=== PATIENT | female | born 1990 | race Caucasian/White ===

== ENCOUNTER 2017-08-11 13:54 | Inpatient (IN) | payer MEDICARE, MEDICAID ==
[~2017-08-11] VITALS: Ht 157.5 cm; Wt 95.9 kg
[2017-08-11] VITALS (7 sets, daily range): BP systolic 108–127; BP diastolic 60–83; PULSE 90–120; RESP 16–18; TEMP 98–98.6; O2SAT 94–98
[2017-08-11] MEDS ORDERED: QUET1TAB10 PO ×2 (14:37)
[2017-08-11] MEDS ORDERED: TOPI50TA7 PO (14:37)
[2017-08-11] MEDS ORDERED: LEVO100T5 PO (14:37)
[2017-08-11] MEDS ORDERED: METO25TA3 PO (14:37)
[2017-08-11] MEDS ORDERED: SODIUM CHLOR 0.9% 1000 ML INJ 1,000 ML IV SCH (15:19)
[2017-08-11] MEDS ORDERED: SODIUM CHLORIDE 0.9% FLUSH 10 ML FLUSH IV FLUSH PRN ×2 (15:30→17:30)
[2017-08-11] MEDS ORDERED: MORPHINE SULFATE 4 MG/ML INJ IV PUSH ONE ×2 (15:30→17:00)
[2017-08-11] MEDS ORDERED: ONDANSETRON HCL 4 MG/2 ML VIAL IVP ONE (15:30)
[2017-08-11 15:51] LABS: AUTOMATED NEUTROPHIL # 14.4 TH/MM3 (1.8-7.7); BASOPHIL # 0.2 TH/MM3 (0-0.2); BASOPHIL % 1.2 % (0.0-2.0); EOSINOPHIL % 0.2 % (0.0-4.0); HEMATOCRIT 41.6 % (35.0-46.0); LYMPH % 7.9 % (9.0-44.0); LYMPHOCYTE # 1.3 TH/MM3 (1.0-4.8); MEAN CELL VOLUME 86.5 FL (80.0-100.0); MEAN CORPUSCULAR HEMOGLOBIN 29.1 PG (27.0-34.0); MEAN CORPUSCULAR HGB CONC 33.7 % (32.0-36.0); MONO % 4.2 % (0.0-8.0); NEUT % 86.5 % (16.0-70.0); PLATELET COUNT 229 TH/MM3 (150-450); RED BLOOD COUNT 4.81 MIL/MM3 (4.00-5.30); RED CELL DISTRIBUTION WIDTH 12.1 % (11.6-17.2); WHITE BLOOD COUNT 16.6 TH/MM3 (4.0-11.0)
[2017-08-11 15:57] LABS: BLOOD, URINE NEG (NEG); GLUCOSE,URINE NEG (NEG); KETONE, URINE NEG (NEG); NITRITE,URINE NEG (NEG)
[2017-08-11 16:00] LABS: POTASSIUM 3.9 MEQ/L (3.5-5.1)
[2017-08-11 16:03] LABS: BICARBONATE 20.8 MEQ/L (21.0-32.0)
[2017-08-11 16:07] LABS: HEMO FLAGS DIFF FINAL
[2017-08-11 16:12] LABS: MUCUS URINE FEW /lpf (OCC); URINE COLOR YELLOW (YELLW/STRAW)
[2017-08-11 16:13] LABS: BACTERIA, URINE FEW /hpf; COMMENT (UR) CULT NOT INDICATED; CULTURE IF INDICATED CULT NOT INDICATED
[2017-08-11 16:17] LABS: INTERNATIONAL NORMALIZED RATIO 1.1 RATIO; PROTHROMBIN TIME - PATIENT 10.7 SEC (9.8-11.6)
[2017-08-11] MEDS ORDERED: IOHEXOL 350 MG/ML 10 ML VIAL (for RAD DIAG) IVCONTRAST ONE (16:17)
--- NOTE | 2017-08-11 16:36 | RADRPT ---
EXAM DATE/TIME: 08/11/2017 16:06 [facility] COMPARISON: No previous studies available for comparison. INDICATIONS : Lower abdominal pain, nausea and vomiting. IV CONTRAST: 70 cc Omnipaque 350 (iohexol) IV ORAL CONTRAST: No oral contrast ingested. RADIATION DOSE: 17.90 CTDIvol (mGy) MEDICAL HISTORY : Mentally challenged. SURGICAL HISTORY : None. ENCOUNTER: Initial ACUITY: 1 day PAIN SCALE: 8/10 LOCATION: Bilateral lower quadrant TECHNIQUE: Volumetric scanning of the abdomen and pelvis was performed. Using automated exposure control and ad justment of the mA and/or kV according to patient size, radiation dose was kept as low as reasonably achievable to obtain optimal diagnostic quality images. DICOM format image data is available electro nically for review and comparison. FINDINGS: LOWER LUNGS: The visualized lower lungs are clear. LIVER: Homogeneous density without lesion. There is no dilation of the biliary tree. No calcified gallston es. SPLEEN: Normal size without lesion. PANCREAS: Within normal limits. KIDNEYS: Normal in size and shape. There is no mass, stone or hydronephrosis. ADRENAL GLANDS: Within normal limits. VASCULAR: There is no aortic aneurysm. BOWEL/MESENTERY: The stomach, small bowel, and colon demonstrate no acute abnormality. There is no free intraperitone al air or fluid. There is a long appendix that is filled proximally with fecal material measures up t o 11 mm in diameter. There is air in the lumen at the tip in the distal aspect may demonstrate mild i nduration/inflammation of the periappendiceal fat. ABDOMINAL WALL: Within normal limits. RETROPERITONEUM: There is no lymphadenopathy. BLADDER: No wall thickening or mass. REPRODUCTIVE: Within normal limits. INGUINAL: There is no lymphadenopathy or hernia. MUSCULOSKELETAL: No acute abnormality is identified. CONCLUSION: 1. The appendix is questionably abnormal. It measures larger in diameter than typical and there is qu estionable mild inflammation around the tip of the appendix. This questionably represents a very vince y acute appendicitis. Suggest correlating with the clinical examination. If conclusive consider a fol lowup CT scan of the abdomen and pelvis. 2. Remainder of the examination is within normal limits. Sulaiman Sanchez MD on August 11, 2017 at 16:26 Board Certified Radiologist. This report was verified electronically.
[2017-08-11] MEDS ORDERED: PIPERACIL-TAZO 3.375 GM PREMIX 50 ML IV ONE (17:00)
--- NOTE | 2017-08-11 17:10 | PD ---
HPI Chief Complaint: GI Complaint Time Seen by Provider: 15:14 Travel History International Travel<30 days: No Contact w/Intl Traveler<30days: No Traveled to known affect area: No History of Present Illness HPI Patient is a 27-year-old female, with history of seizures, tachycardia, hypothyroidism, who comes in complaining of abdominal pain with nausea and vomiting. She says the pain started last night before she went to bed. She says she had an episode of vomiting this morning. She says the pain is all over her abdomen, but worse in the right lower quadrant. She had a bowel movement this morning that was hard. She denies fever or chills. She has not eaten today. She denies any urinary symptoms. She does complain of some pain to her back. [facility] Past Medical History Heart Rhythm Problems: Yes (TACHYCARDIA) Diminished Hearing: Yes Psychiatric: Yes (MENTALLY CHALLENGED) Influenza Vaccination: No ?: Not Past Surgical History Ear Surgery: Yes (TUBES) Tonsillectomy: Yes Social History Alcohol Use: No Tobacco Use: No Substance Use: No Allergies-Medications (Allergen,Severity, Reaction): Coded Allergies: methylphenidate (Verified Allergy, Mild, Hives, 08/11/17) Reported Meds & Prescriptions Reported Meds & Active Scripts Active Reported Levothyroxine (Levothyroxine Sodium) 100 Mcg Tab 100 Mcg PO DAILY Quetiapine (Quetiapine Fumarate) 300 Mg Tab 300 Mg PO HS Quetiapine (Quetiapine Fumarate) 300 Mg Tab 150 Mg PO DAILY Topiramate 50 Mg Tab 150 Mg PO HS Metoprolol Tartrate 25 Mg Tab 25 Mg PO BID Review of Systems Except as stated in HPI: all other systems reviewed are Neg General / Constitutional: No: Fever, Chills HENT: No: Headaches, Lightheadedness Cardiovascular: No: Chest Pain or Discomfort Respiratory: No: Shortness of Breath Gastrointestinal: Positive: Nausea, Vomiting, Abdominal Pain, Constipation Genitourinary: No: Dysuria Musculoskeletal: No: Myalgias, Edema Skin: No Rash, No Change in Pigmentation Neurologic: No: Weakness, Dizziness Physical Exam Narrative GENERAL: Awake and alert, in no acute distress. SKIN: Focused skin assessment warm/dry. HEAD: Atraumatic. Normocephalic. EYES: Pupils equal and round. No scleral icterus. ENT: Mucous membranes pink and moist. NECK: Trachea midline. No JVD. CARDIOVASCULAR: Regular rate and rhythm. No murmur appreciated. RESPIRATORY: No accessory muscle use. Clear to auscultation. Breath sounds equal bilaterally. GASTROINTESTINAL: Abdomen soft, nondistended. Tender to palpation of the right lower quadrant. Positive rebound tenderness. No CVA tenderness. MUSCULOSKELETAL: No obvious deformities. No clubbing. No cyanosis. No edema. NEUROLOGICAL: Awake and alert. No obvious cranial nerve deficits. Motor grossly within normal limits. Normal speech. PSYCHIATRIC: Appropriate mood and affect; insight and judgment normal. Data Data Last Documented VS Vital Signs Date Time Temp Pulse Resp B/P (MAP) Pulse Ox O2 Delivery O2 Flow Rate FiO2 08/11/17 16:48 106 18 117/77 (90) 97 Room Air 08/11/17 14:01 98.0 Orders Orders Basic Metabolic Panel (Bmp) (08/11/17 15:19) Complete Blood Count With Diff (08/11/17 15:19) Lipase (08/11/17 15:19) Prothrombin Time / Inr (Pt) (08/11/17 15:19) Act Partial Throm Time (Ptt) (08/11/17 15:19) Urinalysis - C+S If Indicated (08/11/17 15:19) Ct Abd/Pel W Iv Contrast(Rout) (08/11/17 15:19) Iv Access Insert/Monitor (08/11/17 15:19) Ecg Monitoring (08/11/17 15:19) Oximetry (08/11/17 15:19) Morphine Inj (Morphine Inj) (08/11/17 15:30) Ondansetron Inj (Zofran Inj) (08/11/17 15:30) Sodium Chlor 0.9% 1000 Ml Inj (Ns 1000 M (08/11/17 15:19) Sodium Chloride 0.9% Flush (Ns Flush) (08/11/17 15:30) Ed Urine Pregnancytest Poc (08/11/17 15:19) Iohexol 350 Inj (Omnipaque 350 Inj) (08/11/17 16:17) Morphine Inj (Morphine Inj) (08/11/17 17:00) Piperacil-Tazo 3.375 Gm Premix (Zosyn 3. (08/11/17 17:00) Labs Laboratory Tests Test 08/11/17 15:30 08/11/17 15:45 Urine Color YELLOW Urine Turbidity CLEAR Urine pH 6.0 Urine Specific [place] 1.018 Urine Protein NEG mg/dL Urine Glucose (UA) NEG mg/dL Urine Ketones NEG mg/dL Urine Occult Blood NEG Urine Nitrite NEG Urine Bilirubin NEG Urine Leukocyte Esterase SMALL Urine WBC 6-8 /hpf Urine Squamous Epithelial Cells 6-8 /hpf Urine Bacteria FEW /hpf Urine Mucus FEW /lpf Microscopic Urinalysis Comment CULT NOT INDICATED White Blood Count 16.6 TH/MM3 Red Blood Count 4.81 MIL/MM3 Hemoglobin 14.0 GM/DL Hematocrit 41.6 % Mean Corpuscular Volume 86.5 FL Mean Corpuscular Hemoglobin 29.1 PG Mean Corpuscular Hemoglobin Concent 33.7 % Red Cell Distribution Width 12.1 % Platelet Count 229 TH/MM3 Mean Platelet Volume 8.2 FL Neutrophils (%) (Auto) 86.5 % Lymphocytes (%) (Auto) 7.9 % Monocytes (%) (Auto) 4.2 % Eosinophils (%) (Auto) 0.2 % Basophils (%) (Auto) 1.2 % Neutrophils # (Auto) 14.4 TH/MM3 Lymphocytes # (Auto) 1.3 TH/MM3 Monocytes # (Auto) 0.7 TH/MM3 Eosinophils # (Auto) 0.0 TH/MM3 Basophils # (Auto) 0.2 TH/MM3 CBC Comment DIFF FINAL Differential Comment Prothrombin Time 10.7 SEC Prothromb Time International Ratio 1.1 RATIO Activated Partial Thromboplast Time 24.0 SEC Blood Urea Nitrogen 15 MG/DL Creatinine 1.00 MG/DL Random Glucose 102 MG/DL Calcium Level 8.8 MG/DL Sodium Level 140 MEQ/L Potassium Level 3.9 MEQ/L Chloride Level 110 MEQ/L Carbon Dioxide Level 20.8 MEQ/L Anion Gap 9 MEQ/L Estimat Glomerular Filtration Rate 66 ML/MIN Lipase 145 U/L [facility] Medical Decision Making Medical Screen Exam Complete: Yes Emergency Medical Condition: Yes Medical Record Reviewed: Yes Differential Diagnosis UTI versus appendicitis versus cholecystitis versus colitis versus constipation Narrative Course Patient is a 27-year-old female who comes in complaining of abdominal pain with nausea and vomiting. Exam shows right lower quadrant tenderness with rebound. IV established, labs sent. Labs show a white blood cell count of 16.6. CT abdomen and pelvis is concerning for early appendicitis. Is given IV fluids, Zofran, morphine. Given a dose of Zosyn. Last 24 hours Impressions Abdomen/Pelvis CT 08/11/17 1519 Signed Impressions: Service Date/Time: Friday, August 11, 2017 16:06 - CONCLUSION: 1. The appendix is questionably abnormal. It measures larger in diameter than typical and there is questionable mild inflammation around the tip of the appendix. This questionably represents a very early acute appendicitis. Suggest correlating with the clinical examination. If conclusive consider a followup CT scan of the abdomen and pelvis. 2. Remainder of the examination is within normal limits. Sulaiman Sanchez MD Spoke with Dr. Beebe who will take the patient to the OR. He would like patient admitted to medicine due to her multiple medical issues. Patient admitted to the hospitalist service. Diagnosis Primary Impression: Appendicitis Qualified Codes: K35.89 - Other acute appendicitis Admitting Information Admitting Physician Requests: Admit Sanaz Toro MD Aug 11, 2017 17:10
[2017-08-11] MEDS ORDERED: MAGNESIUM HYDROXIDE SUSP 30 ML CUP PO PRN (17:30)
[2017-08-11] MEDS ORDERED: ONDANSETRON HCL 4 MG/2 ML VIAL IVP PRN (17:30)
[2017-08-11] MEDS ORDERED: CALCIUM CARBONATE 500 MG CHEWABLE TAB CHEW PRN (17:30)
[2017-08-11] MEDS ORDERED: TEMAZEPAM 15 MG CAP PO PRN (17:30)
[2017-08-11] MEDS ORDERED: DOCUSATE SODIUM 100 MG CAP PO PRN (17:30)
[2017-08-11] MEDS ORDERED: NALOXONE HCL 0.4 MG/ML AMP IV PUSH PRN (17:30)
[2017-08-11] MEDS ORDERED: ACETAMINOPHEN 325 MG TAB PO PRN (17:30)
[2017-08-11] MEDS ORDERED: PILL SPLITTER OTHER PRN (17:45)
[2017-08-11] MEDS: SODIUM CHLOR 0.9% 1000 ML INJ 1,000 ML IV SCH (17:47)
--- NOTE | 2017-08-11 17:58 | RADRPT ---
EXAM DATE/TIME: 08/11/2017 17:43 [facility] COMPARISON: CT ABDOMEN & PELVIS W CONTRAST, August 11, 2017, 16:06. INDICATIONS : Sepsis. MEDICAL HISTORY : Mentally challenged SURGICAL HISTORY : None. ENCOUNTER: Initial ACUITY: 1 day PAIN SCORE: 8/10 LOCATION: Bilateral chest FINDINGS: Portable AP view of the chest demonstrates a normal-sized cardiac silhouette. Lungs are underinflated with likely atelectasis at the lung bases. Today's chest CT demonstrated no abnormality at the visua lized lung bases. No pleural effusion or pneumothorax is identified. Bones and soft tissues demonstra te no acute finding. CONCLUSION: Underinflation with atelectasis at the lung bases. Otherwise, no acute finding is identified. Sulaiman Sanchez MD on August 11, 2017 at 17:55 Board Certified Radiologist. This report was verified electronically.
[2017-08-11] MEDS ORDERED: BUPIVACAINE/EPINEPHRINE 0.25% PF 30 ML VIAL ONE (17:59)
--- NOTE | 2017-08-11 18:04 | HHI.HP ---
[facility] Service [facility] Hospitalists Primary Care Physician Eduardo Prakash MD Admission Diagnosis Appendicitis Diagnoses: Chief Complaint: abd pain Travel History International Travel<30 Days: No Contact w/Intl Traveler <30 Da: No Traveled to Known Affected Are: No Sepsis Criteria SIRS Criteria (2 or more): Heart rate over 90, WBC > 93308, < 4000 or > 10% bands Sepsis Criteria (SIRS+source): Infect source susp/known History of Present Illness 27-year-old white female being admitted for appendicitis. History is limited as the mother is the main historian since the patient has a limited intellectual and psychosocial capacity although she is conversive to some degree. Patient was in her usual state of health until yesterday evening when she complained to her mother about back pain. However later in the night around 3 AM she began having abdominal pain which then progress to nausea and vomiting. The pain per the mother started in the bilateral upper abdomen and the progress down towards the suprapubic region. The mother states that the patient did complain to her about some burning upon urination. Mother denies sensing any tactile fever. No reports of any diaphoresis. They tried to go to the primary care office however it was too late because it was close today. Review of Systems attempted but limited by pt not being able to provide further hx. see HPI. Past Family Social History Past Medical History Pervasive developmental disorder Thyroid problems Tachycardia Mood disorders Chronically impaired vision Past Surgical History Tonsils and adenoids removed PE tubes Allergies: Coded Allergies: methylphenidate (Verified Allergy, Mild, Hives, 08/11/17) Family History mother w/ appendicitis and cholelethiasis Social History Lives with mother, graduated from a special school, mental level of functioning is much younger than chronological age. Mother is power of district attorney and decision maker Physical Exam Vital Signs Vital Signs Date Time Temp Pulse Resp B/P (MAP) Pulse Ox O2 Delivery O2 Flow Rate FiO2 08/11/17 17:50 120 18 110/73 (85) 94 Room Air 08/11/17 17:31 16 08/11/17 16:48 106 18 117/77 (90) 97 Room Air 08/11/17 16:47 16 08/11/17 16:01 18 98 Room Air 08/11/17 15:17 90 18 127/83 (98) 98 Room Air 08/11/17 14:01 98.0 92 16 123/60 (81) 96 Physical Exam VS: Afebrile, tachycardic GENERAL: White female who appears mildly somnolent, lying in bed, well-nourished SKIN: Warm and dry. EYES: No scleral icterus. No injection or drainage. Has a slightly lacking eyelid on the right, normal in the left ENT: No nasal bleeding or discharge. Mucous membranes pink and moist. CARDIOVASCULAR: Regular rate and rhythm. no murmurs RESPIRATORY: No accessory muscle use. Clear to auscultation. Breath sounds equal bilaterally. GASTROINTESTINAL: Abdomen soft, has diffuse TTP over suprapubic area with no guarding, I'm unable to discern any true rebound as the patient's abdomen is soft and nondistended nor taut Extremities: No clubbing, cyanosis, or edema. No obvious deformities. MUSCULOSKELETAL: adequate muscle bulk and tone in all 4 distal extremities NEUROLOGICAL: Awake and alert. No obvious cranial nerve deficits. No facial droop nor slurred speech noted. PSYCHIATRIC: Appropriate mood and affect Laboratory Laboratory Tests Test 08/11/17 15:30 08/11/17 15:45 Urine Color YELLOW Urine Turbidity CLEAR Urine pH 6.0 Urine Specific [place] 1.018 Urine Protein NEG Urine Glucose (UA) NEG Urine Ketones NEG Urine Occult Blood NEG Urine Nitrite NEG Urine Bilirubin NEG Urine Leukocyte Esterase SMALL Urine WBC 6-8 Urine Squamous Epithelial Cells 6-8 Urine Bacteria FEW Urine Mucus FEW Microscopic Urinalysis Comment CULT NOT INDICATED White Blood Count 16.6 Red Blood Count 4.81 Hemoglobin 14.0 Hematocrit 41.6 Mean Corpuscular Volume 86.5 Mean Corpuscular Hemoglobin 29.1 Mean Corpuscular Hemoglobin Concent 33.7 Red Cell Distribution Width 12.1 Platelet Count 229 Mean Platelet Volume 8.2 Neutrophils (%) (Auto) 86.5 Lymphocytes (%) (Auto) 7.9 Monocytes (%) (Auto) 4.2 Eosinophils (%) (Auto) 0.2 Basophils (%) (Auto) 1.2 Neutrophils # (Auto) 14.4 Lymphocytes # (Auto) 1.3 Monocytes # (Auto) 0.7 Eosinophils # (Auto) 0.0 Basophils # (Auto) 0.2 CBC Comment DIFF FINAL Differential Comment Prothrombin Time 10.7 Prothromb Time International Ratio 1.1 Activated Partial Thromboplast Time 24.0 Blood Urea Nitrogen 15 Creatinine 1.00 Random Glucose 102 Calcium Level 8.8 Sodium Level 140 Potassium Level 3.9 Chloride Level 110 Carbon Dioxide Level 20.8 Anion Gap 9 Estimat Glomerular Filtration Rate 66 Lipase 145 Result Diagram: 08/11/17 1545 08/11/17 1545 Imaging Last Impressions Chest X-Ray 08/11/17 1722 Signed Impressions: Service Date/Time: Friday, August 11, 2017 17:43 - CONCLUSION: Underinflation with atelectasis at the lung bases. Otherwise, no acute finding is identified. Sulaiman Sanchez MD Abdomen/Pelvis CT 08/11/17 1519 Signed Impressions: Service Date/Time: Friday, August 11, 2017 16:06 - CONCLUSION: 1. The appendix is questionably abnormal. It measures larger in diameter than typical and there is questionable mild inflammation around the tip of the appendix. This questionably represents a very early acute appendicitis. Suggest correlating with the clinical examination. If conclusive consider a followup CT scan of the abdomen and pelvis. 2. Remainder of the examination is within normal limits. MD Angeles Elizabeth VTE Risk Assessment Angeles VTE Risk Assessment: Mod/High Risk (score >= 2) Caprini Risk Assessment Model Point Value = 1 Point Value = 2 Point Value = 3 Point Value = 5 Age 41-60 Minor surgery BMI > 25 kg/m2 Swollen legs Varicose veins or History of unexplained or recurrent spontaneous Oral contraceptives or hormone replacement Sepsis (< 1 month) Serious lung disease, including pneumonia (< 1 month) Abnormal pulmonary function Acute myocardial infarction Congestive heart failure (< 1 month) History of inflammatory bowel disease Medical patient at bed rest Age 61-74 Arthroscopic surgery Major open surgery (> 45 min) Laparoscopic surgery (> 45 min) Malignancy Confined to bed (> 72 hours) Immobilizing plaster cast Central venous access Age >= 75 History of VTE Family history of VTE Factor V Leiden Prothrombin [id number] Lupus anticoagulant Anticardiolipin antibodies Elevated serum homocysteine Heparin-induced thrombocytopenia Other congenital or acquired thrombophilia Stroke (< 1 month) Elective arthroplasty Hip, pelvis, or leg fracture Acute spinal cord injury (< 1 month) Prophylaxis Regimen Total Risk Factor Score Risk Level Prophylaxis Regimen 0-1 Low Early ambulation 2 Moderate Order ONE of the following: *Sequential Compression Device (SCD) *Heparin 5000 units SQ BID 3-4 Higher Order ONE of the following medications: *Heparin 5000 units SQ TID *Enoxaparin/Lovenox 40 mg SQ daily (WT < 150 kg, CrCl > 30 mL/min) *Enoxaparin/Lovenox 30 mg SQ daily (WT < 150 kg, CrCl > 10-29 mL/min) *Enoxaparin/Lovenox 30 mg SQ BID (WT < 150 kg, CrCl > 30 mL/min) AND/OR *Sequential Compression Device (SCD) 5 or more Highest Order ONE of the following medications: *Heparin 5000 units SQ TID (Preferred with Epidurals) *Enoxaparin/Lovenox 40 mg SQ daily (WT < 150 kg, CrCl > 30 mL/min) *Enoxaparin/Lovenox 30 mg SQ daily (WT < 150 kg, CrCl > 10-29 mL/min) *Enoxaparin/Lovenox 30 mg SQ BID (WT < 150 kg, CrCl > 30 mL/min) AND *Sequential Compression Device (SCD) Assessment and Plan Assessment and Plan Sepsis - Most likely secondary to appendicitis - Patient had already been given a dose of Zosyn by emergency room staff, will obtain blood cultures nonetheless along with urine culture and chest x-ray - Continue Zosyn - IV fluid bolus followed by infusion - Elevated white count with tachycardia Appendicitis - Independent review the CT scan shows substantial stool retention and the patient - General surgery has been consulted and anticipate taking patient to operating room tonight - May be worth starting MiraLAX postop once patient is tolerating by mouth intake Continue home metoprolol, Synthroid, and Topamax + Seroquel (for mood disorders) . SCDs - transition to lovenox postop Physician Certification 2 Midnight Certification Type: Admission for Inpatient Services Order for Inpatient Services The services are ordered in accordance with Medicare regulations or non- Medicare payer requirements, as applicable. In the case of services not specified as inpatient-only, they are appropriately provided as inpatient services in accordance with the 2-midnight benchmark. Estimated LOS (days): 2 2 days is the estimated time the patient will need to remain in the hospital, assuming treatment plan goals are met and no additional complications. Post-Hospital Plan: Home Natanael Freeman MD Aug 11, 2017 18:04
[2017-08-11] MEDS ORDERED: SODIUM CHLOR 0.9% 1000 ML INJ 1,000 ML IV ONE (18:15)
[2017-08-11] MEDS ORDERED: CHLORHEXIDINE GLUCONATE 2 % 1 PACK (2 CLOTHS) TOPICAL PRN (19:00)
[2017-08-11] MEDS ORDERED: POVIDONE IODINE 5% (ANTISEPSIS KIT) 4 APPLICATIONS EACH NARE PRN (19:00)
[2017-08-11] MEDS ORDERED: SODIUM CHLORID 0.9% 500 ML IV PRN (19:00)
[2017-08-11] MEDS ORDERED: LACTATED RINGER'S 1000 ML IV PRN (19:00)
[2017-08-11] MEDS ORDERED: FAMOTIDINE 20 MG/2 ML VIAL ONE (19:04)
[2017-08-11] MEDS ORDERED: MIDAZOLAM HCL 2 MG/2 ML VIAL ONE (19:04)
[2017-08-11 19:07] LABS: INDIRECT BILIRUBIN 0.7 MG/DL (0.0-0.8); TOTAL BILIRUBIN ADULT 0.8 MG/DL (0.2-1.0)
[2017-08-11] MEDS ORDERED: ACETAMINOPHEN 1000 MG/100 ML 100 ML IV ONE (19:46)
--- NOTE | 2017-08-11 20:20 | HHI.PR ---
cc: Brayan Beebe MD Immediate Post Op Note Procedure Date: Aug 11, 2017 Pre Op Diagnosis: Acute appendicitis Post Op Diagnosis: Same, without perforation Surgeon: Brayan Beebe Aeronautical Engineering Professor(s): Ann Springer CST Procedure: Laparoscopic appendectomy Complications: None Specimen(s) removed: Appendix to pathology Estimated blood loss: 20 ml Anesthesia: General Drains: None IVF (800 ml) Patient to: PACU Patient Condition: Good Date/Time of Procedure: SEE SURGICAL CARE RECORD Brayan Beebe MD Aug 11, 2017 20:20
[2017-08-11] MEDS ORDERED: ACETAMINOPHEN/HYDROcodone 325 MG/7.5 MG TAB PO PRN ×2 (20:30)
[2017-08-11] MEDS ORDERED: NORC5TAB PO (20:30)
[2017-08-11] MEDS ORDERED: IBUP200T47 PO (20:48)
[2017-08-11] MEDS ORDERED: IBUP-1129 (20:48)
[2017-08-11] MEDS ORDERED: TUMS500C CHEW (20:48)
[2017-08-11] MEDS ORDERED: QUEtiapine FUMARATE 300 MG TAB PO SCH (21:00)
[2017-08-11] MEDS: SODIUM CHLORIDE 0.9% FLUSH 10 ML FLUSH IV FLUSH SCH (21:00)
[2017-08-11] MEDS ORDERED: TOPIRAMATE 100 MG TAB PO SCH (21:00)
[2017-08-11] MEDS ORDERED: TOPIRAMATE 25 MG TAB PO SCH (21:00)
[2017-08-11] MEDS: METOPROLOL TARTRATE 25 MG TAB PO SCH (22:28)
[2017-08-11] MEDS: PIPERACIL-TAZO 3.375 GM PREMIX 50 ML IV SCH (22:28)
[2017-08-12] VITALS: BP 89/55; PULSE 88; RESP 16; TEMP 97.7; O2SAT 94
[2017-08-12] MEDS: SODIUM CHLOR 0.9% 1000 ML INJ 1,000 ML IV SCH (03:22)
[2017-08-12] MEDS: PIPERACIL-TAZO 3.375 GM PREMIX 50 ML IV SCH ×3 (05:12→16:38)
[2017-08-12] MEDS ORDERED: LEVOTHYROXINE SODIUM 100 MCG TAB PO SCH (06:00)
--- NOTE | 2017-08-12 06:50 | MB ---
cc: GEORGETTE SEBASTIAN M.D. DATE OF CONSULTATION: 08/11/2017 REASON FOR CONSULTATION: Possible appendicitis. HISTORY OF PRESENT ILLNESS The patient is a 27-year-old female with history of seizures, tachycardia, hypothyroidism who came in with a 1-day history of abdominal pain with nausea and vomiting. The patient stated that the pain was all over her abdomen but is worse in the right lower quadrant. She denies fever or chills. She is anorexic, but denies urinary symptoms. She had last menstrual period was the week before . PAST MEDICAL HISTORY: On the patient's past medical history significant for tachycardia due to heart rhythm problems since childhood. She has diminished hearing and wears hearing aids. She has decreased mental capacity. She has had PE tubes placed and tonsillectomy as a child. SOCIAL HISTORY: She does not drink, smoke or use other medications. ALLERGIES She has an allergy of METHYLPHENIDATE which causes hives. MEDICATIONS 1. Medications include levothyroxine 100 mcg p.o. daily 2. Quetiapine fumarate 300 mg. po q.h.s. and 150 mg p.o. q. day 3. Topiramate 150 mg p.o. q.h.s. 4. Metoprolol 25 mg p.o. b.i.d. REVIEW OF SYSTEMS Her review of systems is negative except as indicated above. GI is positive for nausea, vomiting, abdominal pain and constipation this morning. PHYSICAL EXAMINATION: IN GENERAL: Physical exam reveals an obese female in no acute distress. VITAL SIGNS: Blood pressure 110/73, pulse 120, respirations 18, 94% sat on room air. HEAD, EYES, EARS, NOSE, AND THROAT: Sclerae anicteric. CHEST: Clear to auscultation. CARDIOVASCULAR SYSTEM: Cardiac exam reveals tachycardia without murmurs. ABDOMEN: Abdomen is soft with tenderness located in the suprapubic region, right lower quadrant and periumbilical region as well as right midabdomen. There is some guarding associated with this. Pulses are present. NEUROLOGIC: Neurologic exam is grossly nonfocal. The patient's fingers were cold. She does have Raynaud's phenomenon as well. ASSESSMENT 1. Multiple medical problems including; 2. Congenital hearing decrease 3. History of tachycardia. 4. Seizure disorder. 5. Hypothyroidism 6. Probable acute appendicitis. LABORATORY: Laboratory values demonstrate WBCs of 16.6. IMAGING: Imaging demonstrates dilated tubular structure in the area of the appendix with stool and air at upper limits of normal size. PLAN I have discussed with the patient's mother surgery versus observation and antibiotics. Given her tachycardia and pain and white count, I would favor not continuing observation. The patient's mother works and she would prefer to have definitive answer for this and is agreeable to surgery this evening. I have discussed risks of surgery with patient's mother, including but not limited to bleeding, infection, abscess formation, need for reoperation, and adhesion formation as well as intestinal leakage. I have discussed remedies, consequences, alternatives, and convalescence; she vocalizes understanding and agrees to proceed. She is the guardian for her daughter. MD SHANTE Griffin/sukhdev /8:32 PM /6:23 AM SAVANNAH
[2017-08-12 07:23] LABS: AUTOMATED NEUTROPHIL # 9.7 TH/MM3 (1.8-7.7); BASOPHIL % 0.4 % (0.0-2.0); EOSINOPHIL # 0.2 TH/MM3 (0-0.4); EOSINOPHIL % 1.4 % (0.0-4.0); HEMATOCRIT 36.4 % (35.0-46.0); HEMO FLAGS DIFF FINAL; LYMPH % 12.4 % (9.0-44.0); LYMPHOCYTE # 1.5 TH/MM3 (1.0-4.8); MEAN CELL VOLUME 86.8 FL (80.0-100.0); MEAN CORPUSCULAR HEMOGLOBIN 28.7 PG (27.0-34.0); MEAN CORPUSCULAR HGB CONC 33.1 % (32.0-36.0); MONO % 8.1 % (0.0-8.0); NEUT % 77.7 % (16.0-70.0); PLATELET COUNT 202 TH/MM3 (150-450); RED CELL DISTRIBUTION WIDTH 12.6 % (11.6-17.2); WHITE BLOOD COUNT 12.4 TH/MM3 (4.0-11.0)
[2017-08-12 07:44] LABS: POTASSIUM 3.3 MEQ/L (3.5-5.1)
[2017-08-12 07:55] LABS: BICARBONATE 20.4 MEQ/L (21.0-32.0)
[2017-08-12 08:00] VITALS: BP 103/59; PULSE 84; RESP 16; TEMP 98; O2SAT 96
[2017-08-12] MEDS: METOPROLOL TARTRATE 25 MG TAB PO SCH (08:31)
[2017-08-12] MEDS ORDERED: QUEtiapine FUMARATE 300 MG TAB PO SCH (09:00)
[2017-08-12] MEDS: SODIUM CHLORIDE 0.9% FLUSH 10 ML FLUSH IV FLUSH SCH (11:55)
[2017-08-12 12:00] VITALS: BP 101/55; PULSE 81; RESP 16; TEMP 98.1; O2SAT 95
--- NOTE | 2017-08-12 12:52 | MP ---
cc: GEORGETTE BEEBE M.D. DATE OF SURGERY: 08/11/2017. PREOPERATIVE DIAGNOSIS: Acute appendicitis. POSTOPERATIVE DIAGNOSIS: Acute appendicitis without perforation. OPERATIVE PROCEDURE PERFORMED: Laparoscopic appendectomy. SURGEON: Georgette Beebe MD. ANESTHESIA: General endotracheal anesthesia. ESTIMATED BLOOD LOSS: 20 mL. FLUIDS: 800 mL crystalloid. COMPLICATIONS: None. DRAINS: None. SPECIMEN: Appendix to pathology. FINDINGS: Bloody fluid in the pelvis with a small amount of endometriosis in the left pelvis on the back wall of the uterus and cul-de-sac. No evidence of ovarian cyst rupture. Appendix dilated but not perforated. DESCRIPTION OF THE PROCEDURE IN DETAIL: The patient was taken to the operating room and placed on the operating room table in the supine position. After an adequate level of general endotracheal anesthesia was achieved, the abdomen was prepped and draped in the usual fashion. A time out was taken confirming the correct patient, site and procedure to be performed. Skin and subcutaneous tissue was infiltrated with local anesthetic and an incision made in the umbilicus and carried through the fascia sharply. The peritoneal cavity was directly visualized and a hemostat used to open the defect larger. A 12 mm balloon trocar was inserted and the balloon inflated. The abdomen was insufflated. The patient was placed in Trendelenburg position. Two 5 mm trocars were then placed with the first in the right lower quadrant and the second in the suprapubic region. Both entered the abdominal cavity under direct vision uneventfully. The appendix was then located and appeared to be dilated. There was a also small amount of bloody fluid in the pelvis. The bloody fluid was aspirated and the patient was noted have a small amount of endometriosis down in the cul-de-sac. There did not appear to be any ruptured ovarian cyst and the appendix did not appear to be bleeding. The mesoappendix was then divided with the harmonic scalpel. A 0-PDS Endoloop was then slipped over the appendix and cinched down at the base. The appendix was divided 1 cm distal to the Endoloop and then placed into an EndoCatch device. The appendix was removed via the umbilical port while observing via the 5-mm trocar site in the right lower quadrant. The specimen was passed off the table. The abdomen was reexamined and irrigated copiously. Irrigation was aspirated and no further bleeding was noted. The appendiceal stump and mesoappendix were reexamined and seen to be hemostatic and dry. Insufflation was discontinued and a 5 mm trocars were removed under direct vision. No bleeding was noted from the trocar sites. The laparoscope and umbilical port were removed. The fascia was closed in the umbilicus with 0 Vicryl suture in a simple interrupted and [id number] fashion. The remaining local anesthetic was injected into each of the trocar sites. The skin was closed at each of the trocar sites with 4-0 Vicryl in an interrupted buried fashion. The skin was dressed with Steri-Strips at all three sites. The patient was extubated and taken back to the recovery room in stable condition. She tolerated procedure well. MD SHANTE Griffin/JCChelsey /8:36 PM /12:34 PM
--- NOTE | 2017-08-12 13:18 | EKG ---
Date Performed: 08/11/2017 Time Performed: 17:59:52 PTAGE: 27 years EKG: SINUS TACHYCARDIA INDETERMINATE AXIS ABNORMAL RHYTHM ECG NO PREVIOUS TRACING DOCTOR: Jameel Correa Interpretating Date/Time 08/12/2017 13:17:35
--- NOTE | 2017-08-12 15:06 | HHI.DCPOC ---
Discharge Care Plan Diagnosis: (1) Appendicitis Goals to Promote Your Health * To prevent worsening of your condition and complications * To maintain your health at the optimal level Directions to Meet Your Goals Take your medications as prescribed Follow your dietary instruction Follow activity as directed Keep your appointments as scheduled Take your immunizations and boosters as scheduled If your symptoms worsen call your PCP, if no PCP go to Urgent Care Center or Emergency Room Smoking is Dangerous to Your Health. Avoid second hand smoke Call the 24-hour hour crisis hotline for domestic abuse at Natanael Freeman MD Aug 12, 2017 15:06
--- NOTE | 2017-08-12 15:53 | HHI.PR ---
Subjective Remarks No deterioration as per nursing since last night. farm equipment technician confirmed the Dr. Beebe did not one blood cultures drawn because he felt the patient wasn't truly septic. Patient and patient's mother both state that they think that she is doing much better today. She tolerated her by mouth intake well and remained afebrile Objective Vital Signs Date Time Temp Pulse Resp B/P (MAP) Pulse Ox O2 Delivery O2 Flow Rate FiO2 08/12/17 12:00 98.1 81 16 101/55 (70) 95 08/12/17 08:00 98.0 84 16 103/59 (74) 96 08/12/17 04:41 08/12/17 00:00 97.7 88 16 89/55 (66) 94 08/11/17 21:51 98.6 101 16 108/67 (81) 95 08/11/17 21:15 98.8 110 14 103/57 (72) 95 Room Air 08/11/17 20:55 98.3 105 14 110/63 (79) 100 4 08/11/17 20:40 98.3 102 14 112/66 (81) 100 4 08/11/17 20:25 98.6 104 14 115/60 (78) 100 Simple Mask 6 08/11/17 20:21 105 08/11/17 18:30 98.7 122 18 110/73 (85) 94 08/11/17 18:25 08/11/17 17:50 120 18 110/73 (85) 94 Room Air 08/11/17 17:31 16 08/11/17 16:48 106 18 117/77 (90) 97 Room Air 08/11/17 16:47 16 08/11/17 16:01 18 98 Room Air I/O 08/11/17 08/11/17 08/11/17 08/12/17 08/12/17 08/12/17 07:00 15:00 23:00 07:00 15:00 23:00 Intake Total 2950 ml 375 ml Balance 2950 ml 375 ml Intake IV Total 2950 ml 375 ml # Voids 6 # Bowel Movements 0 Result Diagram: 08/12/17 0630 08/12/17 0630 Objective Remarks Abdomen with post op sites over umbilicus which appear clean dry and intact, abdomen is otherwise nontender, nondistended but obese A/P Assessment and Plan Patient's leukocytosis is nearly resolved from 17 K down to 12 K, she has remained afebrile. Her tachycardia has also resolved. From surgical standpoint , patient does not need further antibiotics and is clear for discharge since she is afebrile and tolerating by mouth intake well. I instructed the patient and her family to start with soft meals and progress as tolerated. Patient's chest x-ray was unremarkable and her urine analysis was not indicative for a culture. Patient has met maximal benefit from hospitalization and is clinically stable for discharge. Less than 30 min spent on discharge. Natanael Freeman MD Aug 12, 2017 15:53
== END 2017-08-12 18:01 | disposition home or self-care (01) | DRG 343 ==
LOC: PHED 13:54 → PHEDA 17:22 → PH3A 21:36
PROVIDERS: ADMIT Hospitalist; ATTEND Hospitalist
PROC: 0DTJ4ZZ Resection of Appendix, Percutaneous Endoscopic Approach (ICD-10-PCS; principal; 2017-08-11 19:18)
DX: K35.80 Unspecified acute appendicitis (principal); E03.9 Hypothyroidism, unspecified; G40.909 Epilepsy, unspecified, not intractable, without status epilepticus; R00.0 Tachycardia, unspecified; N80.3 Endometriosis of pelvic peritoneum; Z88.8 Allergy status to other drugs, medicaments and biological substances
CPT/HCPCS: 71010; 74177; 80048; 80076; 81001; 83690; 84703; 85025; 85610; 85730; 88304; 93005; 96361; 96374; 96375; 96376; J0131; J2250; J2270; J2405; J2543; J7030; J7120; Q9967